=== PATIENT | female | born 1955 | race Caucasian/White ===

== ENCOUNTER → 2017-03-23 | Outpatient (CLI) | payer OTHER ==
[~2017-03-23] MED LIST: LOSA100T3 PO; METR500T10 PO; NAPR500T PO; PARO1TAB73 PO; TRIA.1%T TOPICAL; ZOLP5TAB3 PO
--- NOTE | 2017-03-23 09:11 | RADRPT ---
EXAM DATE/TIME: 03/23/2017 07:48 [facility] COMPARISON: CHEST SINGLE AP, June 01, 2016, 13:56. INDICATIONS : Right shoulder pain. MEDICAL HISTORY : Hypertension. SURGICAL HISTORY : Cholecystectomy. Fusion, lumbar. Rt and lt total knee ENCOUNTER: Subsequent ACUITY: 1 year PAIN SCORE: 3/10 LOCATION: Right shoulder TECHNIQUE: Multiplanar, multisequence MRI examination was performed without contrast. FINDINGS: ROTATOR CUFF: There appears to be some increased abnormal signal in the supraspinatus tendon. There is fluid in the subacromial and subdeltoid bursa. These findings would suggest a full-thickness rotator cuff tear. LABRUM: There is some degenerative changes involving the labrum. MARROW/CARTILAGE: Bone marrow signal is homogeneous. There is evidence of primary osteoarthritis and degenerative arnold es at the shoulder joint. There is narrowing of the articulating surface. Subchondral cysts are seen non-bony sides of the shoulder joint. OTHER: There is good alignment of the a.c. joint. There is some focal primary degenerative changes at the a. c. joint with a osteophyte along the inferior surface. This can be seen with shoulder impingement syn drome. CONCLUSION: 1. Increased signal is seen in the supraspinatous tendon along with fluid in the subacromial and subd eltoid bursa. These findings would suggest a tear of the rotator cuff. 2. There is primary osteoarthritis of the shoulder joint with narrowing of the joint space and subcho ndral cysts on both sides of the joint. 3. Focal primary degenerative changes at the a.c. joint with a spur along the inferior surface. This can be seen with shoulder impingement syndrome. Bryant Rendon MD on March 23, 2017 at 9:04 Board Certified Radiologist. This report was verified electronically.
== END ==
LOC: HRAD 07:07
PROVIDERS: ATTEND Family Medicine
DX: M75.41 Impingement syndrome of right shoulder (principal)
CPT/HCPCS: 73221

== ENCOUNTER → 2017-04-10 | Outpatient (CLI) | payer OTHER ==
[~2017-04-10] MED LIST changes: +MOBI15TA PO; +VOLT1GEL4 TP
--- NOTE | 2017-04-10 10:58 | RADRPT ---
EXAM DATE/TIME: 04/10/2017 09:54 [facility] COMPARISON: HIP LEFT (AP & LAT), June 11, 2015, 10:22. INDICATIONS : Left hip pain, following bilateral knee replacement. MEDICAL HISTORY : None. SURGICAL HISTORY : Total knee replacement, left. Total knee replacement, right. ENCOUNTER: Initial ACUITY: >1 year PAIN SCORE: 8/10 LOCATION: Left hip FINDINGS: There has been significant interval worsening of osteoarthritis involving the left hip joint compared to the previous examination in May 2015. There is severe joint space narrowing as well as mar ginal osteophytic spurring. The findings are consistent with severe osteoarthritis. No acute fractu re or dislocation is noted. there is apparent callous formation/periosteal reaction in the region of the left femoral neck suggesting old healed fracture in the region of femoral neck. CONCLUSION: 1. Significant interval worsening of osteoarthritis involving the left hip joint with severe joint s pace narrowing and marginal osteophytosis indicating severe osteoarthritis. 2. No acute fracture or dislocation. 3. Apparent callous formation/periosteal reaction involving the femoral neck indicating possible old healed fracture Ady Hernandez MD on April 10, 2017 at 10:45 Board Certified Radiologist. This report was verified electronically.
== END ==
LOC: HRAD 09:33
PROVIDERS: ATTEND Family Medicine
DX: M25.552 Pain in left hip (principal)
CPT/HCPCS: 73502

== ENCOUNTER → 2017-05-16 | Outpatient (CLI) | payer OTHER ==
--- NOTE | 2017-05-16 10:57 | RADRPT ---
EXAM DATE/TIME: 05/16/2017 09:51 [facility] COMPARISON: CHEST PA & LAT, October 24, 2015, 13:27. INDICATIONS : Evaluate for pneumonia, pneumothorax, and communicable disease. Preop for rotator cuff repair. MEDICAL HISTORY : Hypertension. Pulmonary emboli. SURGICAL HISTORY : Pacemaker. Total knee replacement, right. Total knee replacement, left. Fusion, lumbar. ENCOUNTER: Initial ACUITY: 1 day PAIN SCORE: 0/10 LOCATION: Bilateral chest FINDINGS: PA and lateral views of the chest demonstrate the lungs to be symmetrically aerated without evidence of mass, infiltrate or effusion. The cardiomediastinal contours are unremarkable. Osseous structure s are intact. CONCLUSION: No acute disease. Adis Nava MD FACR on May 16, 2017 at 10:55 Board Certified Radiologist. This report was verified electronically.
== END ==
LOC: HRAD 09:37
PROVIDERS: ATTEND Hospitalist
DX: Z01.818 Encounter for other preprocedural examination (principal)
CPT/HCPCS: 71020

== ENCOUNTER 2017-09-25 15:41 | Emergency (ER) | payer OTHER ==
[~2017-09-25 15:41] MED LIST changes: -METR500T10 PO; -NAPR500T PO; +NAPR500T2 PO; -PARO1TAB73 PO; +PARO30TA3 PO; +VOLT1GEL16 TP; -VOLT1GEL4 TP
[2017-09-25 15:42] VITALS: BP 137/80; PULSE 106; RESP 16; TEMP 98.4; O2SAT 98
[2017-09-25 17:13] LABS: AUTOMATED NEUTROPHIL # 4.3 TH/MM3 (1.8-7.7); BASOPHIL # 0.1 TH/MM3 (0-0.2); EOSINOPHIL # 0.3 TH/MM3 (0-0.4); EOSINOPHIL % 4.2 % (0.0-4.0); HEMATOCRIT 35.6 % (35.0-46.0); HEMOGLOBIN 12.3 GM/DL (11.6-15.3); LYMPH % 32.8 % (9.0-44.0); LYMPHOCYTE # 2.5 TH/MM3 (1.0-4.8); MEAN CELL VOLUME 85.8 FL (80.0-100.0); MEAN CORPUSCULAR HEMOGLOBIN 29.7 PG (27.0-34.0); MEAN CORPUSCULAR HGB CONC 34.6 % (32.0-36.0); MEAN PLATELET VOLUME 8.3 FL (7.0-11.0); MONO % 5.4 % (0.0-8.0); MONOCYTE # 0.4 TH/MM3 (0-0.9); NEUT % 56.6 % (16.0-70.0); PLATELET COUNT 229 TH/MM3 (150-450); RED BLOOD COUNT 4.15 MIL/MM3 (4.00-5.30); RED CELL DISTRIBUTION WIDTH 13.8 % (11.6-17.2); WHITE BLOOD COUNT 7.6 TH/MM3 (4.0-11.0)
[2017-09-25 17:30] LABS: PROTHROMBIN TIME - PATIENT 10.2 SEC (9.8-11.6)
[2017-09-25 17:35] LABS: BICARBONATE 30.5 MEQ/L (21.0-32.0); BLOOD UREA NITROGEN 19 MG/DL (7-18); CALCIUM 9.3 MG/DL (8.5-10.1); CHLORIDE 103 MEQ/L (98-107); CREATININE 0.93 MG/DL (0.50-1.00); GLOMERULAR FILTRATION RATE 61 ML/MIN (>89); GLUCOSE,RANDOM 114 MG/DL (74-106); SODIUM (NA) 138 MEQ/L (136-145)
[2017-09-25 17:37] LABS: AST (GOT) 19 U/L (15-37)
[2017-09-25 17:41] LABS: ALKALINE PHOSPHATASE 59 U/L (45-117); ALT (GPT) 28 U/L (10-53); TOTAL BILIRUBIN ADULT 0.4 MG/DL (0.2-1.0); TOTAL PROTEIN 7.5 GM/DL (6.4-8.2)
[2017-09-25 19:25] VITALS: BP 114/71; TEMP 98.3; O2SAT 100
--- NOTE | 2017-09-25 22:29 | RADRPT ---
EXAM DATE/TIME: 09/25/2017 21:57 [facility] COMPARISON: No previous studies available for comparison. INDICATIONS : Right leg swelling. MEDICAL HISTORY : Gastroesophageal reflux disease. Pulmonary embolism. Heart murmur. Anxiety. SURGICAL HISTORY : Hysterectomy. Laminectomy. Left knee surgery. ENCOUNTER: Subsequent ACUITY: 1 day PAIN SCORE: 1/10 LOCATION: Right leg. TECHNIQUE: Venous ultrasound of the leg was performed from the inguinal ligament to the proximal calf. Real-edmar e, color Doppler and spectral tracing, compression and augmentation techniques were used. FINDINGS: There is normal compressibility of the deep venous system from the inguinal region to the proximal ca lf. No echogenic clot is seen in the lumen of the common femoral, femoral, popliteal, and posterior tibial veins. There is a normal response of the venous system to proximal and distal augmentation an d respiration. CONCLUSION: Negative. No DVT of the right lower extremity. Bong Lazo MD on September 25, 2017 at 22:26 Board Certified Radiologist. This report was verified electronically.
--- NOTE | 2017-09-25 23:10 | PD ---
HPI Chief Complaint: Edema Time Seen by Provider: 22:48 Travel History International Travel<30 days: No Contact w/Intl Traveler<30days: No Traveled to known affect area: No History of Present Illness HPI 61-year-old white female presents to emergency Department with complaints of some pain in the right leg from the groin down into the foot along with swelling. She states that this is been present now for the past week. She has not seen anyone regarding this as of yet. She states that she did not have any injury. She's had bilateral knee replacements. She also also had a history of pulmonary embolus approximate 4 years ago. They did hematological evaluation but could not find the etiology. She subsequently had her knees replaced approximate 1-2 years ago and has not had a complications with DVT. Patient also states that she has not been feeling well for several days. She has had some congestion and cough with some shortness of breath. She denies any fever or chills. No nausea vomiting. No numbness, tingling or weakness. She does complain of pain in her joints from chronic arthritis. She has [id number] arthritis in multiple joints. FORMERLY [facility] Past Medical History Narrative Medical Arthritis, hypertension, history of pulmonary embolus Anxiety: Yes Heart Rhythm Problems: Yes (murmur) Cancer: No Cardiovascular Problems: No Congestive Heart Failure: No Diabetes: No Diminished Hearing: No Endocrine: No Genitourinary: No Hepatitis: No Hiatal Hernia: No Hypertension: Yes Immune Disorder: No Musculoskeletal: Yes (BILATERAL KNEE) Neurologic: No Psychiatric: No Reproductive: No Respiratory: No (BLOOD CLOTS) Thyroid Disease: No Tetanus Vaccination: < 5 Years ?: Not Past Surgical History Narrative Surgical Hysterectomy, Bilateral knee replacements Abdominal Surgery: No AICD: No Ear Surgery: No Endocrine Surgery: No Eye Surgery: No Genitourinary Surgery: No Gynecologic Surgery: No (hysterectomy) Hysterectomy: Yes Oral Surgery: Yes (TEETH) Thoracic Surgery: No Other Surgery: Yes (PIN IN WRIST) Social History Alcohol Use: No Tobacco Use: No Substance Use: No Allergies-Medications (Allergen,Severity, Reaction): Coded Allergies: No Known Allergies (Unverified Adverse Reaction, Unknown, 09/25/17) Reported Meds & Prescriptions Reported Meds & Active Scripts Active Zolpidem (Zolpidem Tartrate) 5 Mg Tab 5 Mg PO HS PRN Paroxetine (Paroxetine HCl) 30 Mg Tab 30 Mg PO DAILY Naproxen 500 Mg Tab 500 Mg PO DAILY Losartan-Hydrochlorothiazide 100-12.5 Mg Tab 1 Tab PO DAILY Voltaren (Diclofenac Sodium) 100 Gm Gel..gram. 1 Applic TP TID PRN Review of Systems Except as stated in HPI: all other systems reviewed are Neg Physical Exam Narrative GENERAL: Well-developed, well-nourished in no acute distress. Nontoxic appearing. HEAD: Normocephalic, atraumatic. EYES: Pupils equal round and reactive. Extraocular motions intact. No scleral icterus. No injection or drainage. ENT: TMs clear without erythema. The external auditory canals clear. Nose: clear . Posterior pharynx is pink and moist. No tonsillar edema or exudate. Uvula midline. Airway patent. NECK: Trachea midline.Supple, nontender, moves head freely. No central bony tenderness or spasm. CARDIOVASCULAR: Regular rate and rhythm without murmurs, gallops, or rubs. RESPIRATORY: Clear to auscultation. Breath sounds equal bilaterally. No wheezes , rales, or rhonchi. GASTROINTESTINAL: Abdomen soft, non-tender, nondistended. No hepato-splenomegaly , or palpable masses. No guarding. EXTREMITIES: No clubbing, cyanosis,. Patient does have some mild swelling in the right leg when compared to the left. She has surgical scars from bilateral knee replacements. She complains of tenderness from the proximal thigh down into the lower leg on the right. There is no erythema, warmth or cords. There is a mildly positive Homans sign on the right. She has intact sensation with good distal pulses. There is no pain in the left leg. BACK: Nontender without deformity or crepitance. No flank tenderness. Data Data Last Documented VS Vital Signs Date Time Temp Pulse Resp B/P (MAP) Pulse Ox O2 Delivery O2 Flow Rate FiO2 09/25/17 19:25 98.3 114/71 (85) 100 09/25/17 15:42 106 16 Orders Orders Complete Blood Count With Diff (09/25/17 16:07) Comprehensive Metabolic Panel (09/25/17 16:07) Act Partial Throm Time (Ptt) (09/25/17 16:07) Prothrombin Time / Inr (Pt) (09/25/17 16:07) Us Leg Venous Doppler (09/25/17 ) Ed Discharge Order (09/25/17 22:59) Labs Laboratory Tests Test 09/25/17 16:30 White Blood Count 7.6 TH/MM3 Red Blood Count 4.15 MIL/MM3 Hemoglobin 12.3 GM/DL Hematocrit 35.6 % Mean Corpuscular Volume 85.8 FL Mean Corpuscular Hemoglobin 29.7 PG Mean Corpuscular Hemoglobin Concent 34.6 % Red Cell Distribution Width 13.8 % Platelet Count 229 TH/MM3 Mean Platelet Volume 8.3 FL Neutrophils (%) (Auto) 56.6 % Lymphocytes (%) (Auto) 32.8 % Monocytes (%) (Auto) 5.4 % Eosinophils (%) (Auto) 4.2 % Basophils (%) (Auto) 1.0 % Neutrophils # (Auto) 4.3 TH/MM3 Lymphocytes # (Auto) 2.5 TH/MM3 Monocytes # (Auto) 0.4 TH/MM3 Eosinophils # (Auto) 0.3 TH/MM3 Basophils # (Auto) 0.1 TH/MM3 CBC Comment DIFF FINAL Differential Comment Prothrombin Time 10.2 SEC Prothromb Time International Ratio 1.0 RATIO Activated Partial Thromboplast Time 26.6 SEC Blood Urea Nitrogen 19 MG/DL Creatinine 0.93 MG/DL Random Glucose 114 MG/DL Total Protein 7.5 GM/DL Albumin 4.0 GM/DL Calcium Level 9.3 MG/DL Alkaline Phosphatase 59 U/L Aspartate Amino Transf (AST/SGOT) 19 U/L Alanine Aminotransferase (ALT/SGPT) 28 U/L Total Bilirubin 0.4 MG/DL Sodium Level 138 MEQ/L Potassium Level 3.9 MEQ/L Chloride Level 103 MEQ/L Carbon Dioxide Level 30.5 MEQ/L Anion Gap 5 MEQ/L Estimat Glomerular Filtration Rate 61 ML/MIN MDM Medical Decision Making Medical Screen Exam Complete: Yes Emergency Medical Condition: Yes Medical Record Reviewed: Yes Interpretation(s) Laboratory Tests Test 09/25/17 16:30 White Blood Count 7.6 TH/MM3 Red Blood Count 4.15 MIL/MM3 Hemoglobin 12.3 GM/DL Hematocrit 35.6 % Mean Corpuscular Volume 85.8 FL Mean Corpuscular Hemoglobin 29.7 PG Mean Corpuscular Hemoglobin Concent 34.6 % Red Cell Distribution Width 13.8 % Platelet Count 229 TH/MM3 Mean Platelet Volume 8.3 FL Neutrophils (%) (Auto) 56.6 % Lymphocytes (%) (Auto) 32.8 % Monocytes (%) (Auto) 5.4 % Eosinophils (%) (Auto) 4.2 % Basophils (%) (Auto) 1.0 % Neutrophils # (Auto) 4.3 TH/MM3 Lymphocytes # (Auto) 2.5 TH/MM3 Monocytes # (Auto) 0.4 TH/MM3 Eosinophils # (Auto) 0.3 TH/MM3 Basophils # (Auto) 0.1 TH/MM3 CBC Comment DIFF FINAL Differential Comment Prothrombin Time 10.2 SEC Prothromb Time International Ratio 1.0 RATIO Activated Partial Thromboplast Time 26.6 SEC Blood Urea Nitrogen 19 MG/DL Creatinine 0.93 MG/DL Random Glucose 114 MG/DL Total Protein 7.5 GM/DL Albumin 4.0 GM/DL Calcium Level 9.3 MG/DL Alkaline Phosphatase 59 U/L Aspartate Amino Transf (AST/SGOT) 19 U/L Alanine Aminotransferase (ALT/SGPT) 28 U/L Total Bilirubin 0.4 MG/DL Sodium Level 138 MEQ/L Potassium Level 3.9 MEQ/L Chloride Level 103 MEQ/L Carbon Dioxide Level 30.5 MEQ/L Anion Gap 5 MEQ/L Estimat Glomerular Filtration Rate 61 ML/MIN Last 24 hours Impressions Lower Extremity Ultrasound 09/25/17 0000 Signed Impressions: Service Date/Time: Monday, September 25, 2017 21:57 - CONCLUSION: Negative. No DVT of the right lower extremity. Bong Lazo MD Differential Diagnosis Differential diagnosis: Pedal edema, dependent edema, arthritis, cellulitis, DVT Narrative Course Patient's laboratory tests including an ultrasound of the right lower leg are negative for DVT. Patient has been advised that at this time I have no etiology of her complaints of pain and swelling although her initial evaluation is negative the day that she needs to be followed up closely because sometimes a ultrasound is negative initially but then person presents with persistent symptoms he still may develop a DVT. Patient verbally states understanding and will follow-up closely with her doctor tomorrow. This is right leg pain and edema Diagnosis Primary Impression: right leg pain and edema Patient Instructions: General Instructions Additional Instructions: Rest. Elevation. Follow-up with your doctor tomorrow for second opinion and reevaluation. Return to the ER if any problems. His symptoms worsen or do not improve a repeat ultrasound in 5 days is indicated. Med/Other Pt SpecificInfo: No Meds Exist/No RX given Disposition: 01 DISCHARGE HOME Condition: Stable Manuel Mcgregor Sep 25, 2017 23:10
== END 2017-09-25 23:27 | disposition home or self-care (01) ==
LOC: NEPK 15:41
DX: R60.0 Localized edema (principal); M79.604 Pain in right leg; Z96.653 Presence of artificial knee joint, bilateral; I10 Essential (primary) hypertension; M19.90 Unspecified osteoarthritis, unspecified site; Z86.711 Personal history of pulmonary embolism
CPT/HCPCS: 80053; 85025; 85610; 85730; 93971; 99284

== ENCOUNTER 2017-11-05 16:23 | Emergency (ER) | payer OTHER ==
[~2017-11-05] VITALS: Ht 157.5 cm; Wt 113.6 kg
[~2017-11-05 16:23] MED LIST changes: -MOBI15TA PO; -TRIA.1%T TOPICAL
[2017-11-05 16:30] VITALS: BP 120/57; PULSE 78; RESP 16; TEMP 98
[2017-11-05] MEDS ORDERED: KETOROLAC TROMETHAMINE 30 MG/ML (IVP) VIAL IV PUSH ONE (16:45)
[2017-11-05] MEDS ORDERED: DIAZEPAM 10 MG TAB PO ONE (16:45)
--- NOTE | 2017-11-05 17:13 | RADRPT ---
EXAM DATE/TIME: 11/05/2017 16:53 [facility] COMPARISON: No previous studies available for comparison. INDICATIONS : Left side pelvic pain, injured getting out of shower MEDICAL HISTORY : Arthritis. Gastroesophageal reflux disease. Pulmonary embolism. Heart murmur. Anxiety. SURGICAL HISTORY : Hysterectomy. Laminectomy L4-5. Left knee surgery. ENCOUNTER: Initial ACUITY: 1 day PAIN SCORE: 10/10 LOCATION: Left Pelvis FINDINGS: A single frontal view of the pelvis demonstrates no evidence of fracture. The bony pelvic ring is in tact there is severe left hip degenerative osteoarthritis with severe joint space narrowing, osteophy linda, and subchondral sclerosis. Bony mineralization is normal. The soft tissues are intact. CONCLUSION: 1. No acute fracture or dislocation. 2. Severe left hip degenerative osteoarthritis. Tim Perry MD on November 05, 2017 at 17:10 Board Certified Radiologist. This report was verified electronically.
--- NOTE | 2017-11-05 17:25 | RADRPT ---
EXAM DATE/TIME: 11/05/2017 16:54 [facility] COMPARISON: No previous studies available for comparison. INDICATIONS : Low back pain, injured getting out of shower MEDICAL HISTORY : Arthritis. Gastroesophageal reflux disease. Pulmonary embolism. Heart murmur. Anxiety SURGICAL HISTORY : Hysterectomy. Laminectomy L4-5. Left knee surgery. ENCOUNTER: Initial ACUITY: 1 day PAIN SCORE: 10/10 LOCATION: Lumbar spine FINDINGS: There are 5 lumbar-type vertebral bodies. Vertebral body heights are intact without evidence for acut e bony fracture or focal bony destruction. Sagittal alignment is maintained. The bony neural foramina are grossly patent although not well demonstrated at L4-5. Mild degenerative changes of the lower anthony mbar spine most prominently at L4-S1. There is also mild facet arthropathy in the lower lumbar spine. Soft tissues are unremarkable. Sacral arches are intact. SI joints are maintained. CONCLUSION: 1. No acute fracture or subluxation. 2. Mild degenerative spondylosis of the lower lumbar spine most prominently at L4-S1. Tim Perry MD on November 05, 2017 at 17:21 Board Certified Radiologist. This report was verified electronically.
--- NOTE | 2017-11-05 17:26 | RADRPT ---
EXAM DATE/TIME: 11/05/2017 16:55 [facility] COMPARISON: No previous studies available for comparison. INDICATIONS : Left proximal femur pain, injured getting out of shower MEDICAL HISTORY : Arthritis. Gastroesophageal reflux disease. Pulmonary embolism. Heart murmur. Anxiety. SURGICAL HISTORY : Hysterectomy. Laminectomy. Left knee surgery. ENCOUNTER: Initial ACUITY: 1 day PAIN SCORE: 10/10 LOCATION: Left Femur FINDINGS: Two-view examination of the left femur demonstrates severe osteoarthritis of the left hip with comple te loss of the superior and superomedial joint space height, subchondral cyst formation on both sides of the joint are and some sclerosis across the joint. The primary and secondary trabecular pattern of the femoral neck is intact. There is some periosteal thickening about the femoral neck. The shaf t of the femur is intact. Total knee arthroplasty in place. CONCLUSION: 1. No evidence of acute bony injury. 2. Severe osteoarthritis of the left hip with complete loss of joint space width. Chance Henry MD on November 05, 2017 at 17:23 Board Certified Radiologist. This report was verified electronically.
[2017-11-05] MEDS ORDERED: oxyCODONE/ACETAMINOPHEN 5 MG/325 MG TAB PO ONE (17:45)
[2017-11-05 18:08] VITALS: BP 135/59; PULSE 70; RESP 16; O2SAT 96
[2017-11-05] MEDS ORDERED: PERC5TAB12 PO (18:53)
--- NOTE | 2017-11-05 18:54 | PD ---
HPI Chief Complaint: Fall Time Seen by Provider: 16:25 Travel History International Travel<30 days: No Contact w/Intl Traveler<30days: No Traveled to known affect area: No History of Present Illness HPI Patient is a 61-year-old female who comes in complaining of severe pain to her left hip. She has known history of osteoarthritis of the hip. She says that she twisted and she heard a pop in her leg can give out on her. She did not fall. She denies any injury to the hip. She has not taken any medicine at home for the pain. She did receive 10 mg of morphine by EMS prior to coming in. She complains of some left lower back pain. She denies numbness or tingling. Severity is mild to moderate. PFSH Past Medical History Anxiety: Yes Heart Rhythm Problems: Yes (murmur) Cancer: No Cardiovascular Problems: Yes (HTN) Congestive Heart Failure: No Diabetes: No Diminished Hearing: No Endocrine: No Gastrointestinal Disorders: Yes (ACID REFLUX) Genitourinary: No Hepatitis: No Hiatal Hernia: No Hypertension: Yes Immune Disorder: No Musculoskeletal: Yes (BILATERAL KNEE) Neurologic: No Psychiatric: No Reproductive: No Respiratory: No (BLOOD CLOTS) Thyroid Disease: No ?: Not Past Surgical History Abdominal Surgery: No AICD: No Ear Surgery: No Endocrine Surgery: No Eye Surgery: No Genitourinary Surgery: No Gynecologic Surgery: No (hysterectomy) Hysterectomy: Yes Neurologic Surgery: No (LAMINECTOMY) Oral Surgery: Yes (TEETH) Thoracic Surgery: No Other Surgery: Yes (PIN IN WRIST) Social History Alcohol Use: No Tobacco Use: No Substance Use: No Allergies-Medications (Allergen,Severity, Reaction): Coded Allergies: No Known Allergies (Unverified Adverse Reaction, Unknown, 09/25/17) Reported Meds & Prescriptions Reported Meds & Active Scripts Active Zolpidem (Zolpidem Tartrate) 5 Mg Tab 5 Mg PO HS PRN Paroxetine (Paroxetine HCl) 30 Mg Tab 30 Mg PO DAILY Naproxen 500 Mg Tab 500 Mg PO DAILY Losartan-Hydrochlorothiazide 100-12.5 Mg Tab 1 Tab PO DAILY Voltaren (Diclofenac Sodium) 100 Gm Gel..gram. 1 Applic TP TID PRN Review of Systems Except as stated in HPI: all other systems reviewed are Neg General / Constitutional: No: Fever, Chills HENT: No: Headaches, Lightheadedness Respiratory: No: Shortness of Breath Gastrointestinal: No: Nausea, Vomiting Musculoskeletal: Positive: Limited ROM, Pain Skin: No Rash, No Change in Pigmentation Neurologic: No: Weakness, Dizziness Physical Exam Narrative GENERAL: Awake and alert, in no acute distress. SKIN: Focused skin assessment warm/dry. No warmth or signs of infection. No ecchymosis. HEAD: Atraumatic. Normocephalic. EYES: Pupils equal and round. No scleral icterus. No injection or drainage. ENT: No nasal bleeding or discharge. Mucous membranes pink and moist. NECK: Trachea midline. No JVD. CARDIOVASCULAR: Regular rate and rhythm. No murmur appreciated. RESPIRATORY: No accessory muscle use. Clear to auscultation. Breath sounds equal bilaterally. MUSCULOSKELETAL: No obvious deformities. No clubbing. No cyanosis. No edema. Tender to palpation of the left hip. Pain with any movement of the left hip. Pain to the left sacroiliac area. Pedal pulses intact. NEUROLOGICAL: Awake and alert. No obvious cranial nerve deficits. Motor grossly within normal limits. Normal speech. PSYCHIATRIC: Appropriate mood and affect; insight and judgment normal. Data Data Last Documented VS Vital Signs Date Time Temp Pulse Resp B/P (MAP) Pulse Ox O2 Delivery O2 Flow Rate FiO2 11/05/17 18:08 70 16 135/59 (84) 96 Room Air 11/05/17 16:30 98.0 Orders Orders Pelvis, Ap Only (Routine) (11/05/17 ) Femur (Ap & Lat/2vws) (11/05/17 ) Spine, Lumbar Comp W/Obliq (11/05/17 ) Diazepam (Valium) (11/05/17 16:45) Ketorolac Inj (Toradol Inj) (11/05/17 16:45) Oxycodone-Acetamin 5-325 Mg (Percocet (11/05/17 17:45) MDM Medical Decision Making Medical Screen Exam Complete: Yes Emergency Medical Condition: Yes Medical Record Reviewed: Yes Differential Diagnosis Arthritis versus fracture versus sprain Narrative Course Patient is a 61-year-old female comes in complaining of left hip pain. Exam shows pain with movement of the hip. X-ray of the hip and lower back show severe osteoarthritis of the left hip. Patient given pain medicine. She will be discharged with a prescription for pain medicine. She is advised to continue to follow-up with orthopedics. Advised return anytime for any worsening symptoms. Last 24 hours Impressions Pelvis X-Ray 11/05/17 0000 Signed Impressions: Service Date/Time: Sunday, November 05, 2017 16:53 - CONCLUSION: 1. No acute fracture or dislocation. 2. Severe left hip degenerative osteoarthritis. Tim Perry MD Lumbar Spine X-Ray 11/05/17 0000 Signed Impressions: Service Date/Time: Sunday, November 05, 2017 16:54 - CONCLUSION: 1. No acute fracture or subluxation. 2. Mild degenerative spondylosis of the lower lumbar spine most prominently at L4-S1. Tim Perry MD Femur X-Ray 11/05/17 0000 Signed Impressions: Service Date/Time: Sunday, November 05, 2017 16:55 - CONCLUSION: 1. No evidence of acute bony injury. 2. Severe osteoarthritis of the left hip with complete loss of joint space width. Chance Henry MD Diagnosis Primary Impression: Osteoarthritis of left hip Qualified Codes: M16.12 - Unilateral primary osteoarthritis, left hip Patient Instructions: General Instructions, Hip Pain (ED) Additional Instructions: Follow-up with your doctors. Take pain medicine as needed. Return to the ED as needed for any worsening symptoms. Scripts Oxycodone-Acetaminophen (Percocet) 5-325 mg Tab 1 TAB PO Q6H Y for PAIN, #10 TAB 0 Refills Prov: Blanquita Leong MD 11/05/17 Disposition: 01 DISCHARGE HOME Condition: Stable Blanquita Leong MD Nov 05, 2017 18:54
== END 2017-11-05 19:10 | disposition home or self-care (01) ==
LOC: NEPE 16:23
DX: M16.12 Unilateral primary osteoarthritis, left hip (principal); I10 Essential (primary) hypertension; F41.9 Anxiety disorder, unspecified; K21.9 Gastro-esophageal reflux disease without esophagitis
CPT/HCPCS: 72110; 72170; 73552; 96374; 99284; J1885